=== PATIENT | female | born 2000 | race Two or more races ===

== ENCOUNTER 2024-10-04 15:00 | Emergency (ER) | payer OTHER, SELFPAY ==
--- NOTE | 2024-10-04 15:26 | ED_ITS ---
HPI - General Adult General Chief complaint: Neuro Symptoms/Deficit Stated complaint: multiple symptoms Time Seen by Provider: 10/04/24 18:03 Related Data Allergies Allergy/AdvReac Type Severity Reaction Status Date / Time No Known Allergies Allergy Verified 10/04/24 15:33 [facility] Social History Social History Smoked in Last 30 Days: No Use of substances other than those prescribed or required for medical reasons: No Advance Directives: No Advance Directives Information Provided: No Patient : No Physical Exam ED Vital Signs: Vital Signs - 24 hr 10/04/24 15:27 10/04/24 19:07 Temperature 98.3 F 8.1 F L Pulse Rate 90 85 Respiratory Rate 16 16 Blood Pressure 120/72 119/75 Pulse Oximetry 99 99 Oxygen Delivery Method Room Air Room Air BMI result Body Mass Index 44.0 Course Course Course Narrative: This is a Rapid Medical Exam performed in triage by Romi Brenner PA-C. Full HPI, ROS and PE to be performed by primary ED provider. 24 y/o F PMHx presenting to the ED c/o confusion, shakiness, nausea, weakness, poor appetite. Reports psych started her on trileptal for bipolar few months ago following a manic episode and couple weeks ago started getting side effects and stopped taking abruptly. Reports symptoms have worsened since stopping the med. Denies vomiting, diarrhea. Denies SI, thoughts of harming others, drug, alc use. PE: walking with steady gait, speaking in full sentences Plan: UA, labs Medical Decision Making Lab Data 10/04/24 15:43 10/04/24 15:43 Labs: Lab Results 10/04/24 Range/Units 15:43 WBC 8.9 (4.8-10.8) X10*3/uL RBC 4.06 L (4.20-5.50) X10*6/uL Hgb 10.5 L (12.0-16.0) g/dl Hct 32.0 L (37.0-47.0) % MCV 78.8 L (80.0-98.0) fL MCH 25.9 L (27.0-33.0) pg MCHC 32.8 (31.0-35.0) g/dl RDW 13.9 (11.0-16.0) % Plt Count 235 (160-400) X10*3/uL MPV 10.9 (9.4-12.3) fL Immature Gran % (Auto) 0.6 H (0.0-0.4) % Neut % (Auto) 70.3 (45-73) % Lymph % (Auto) 23.1 (20-40) % Wallace % (Auto) 4.6 (2-11) % Eos % (Auto) 1.2 (0-4) % Baso % (Auto) 0.2 (0-2) % Lymph # (Auto) 2.1 (1.2-4.9) X10*3/uL Wallace # (Auto) 0.4 (0.1-1.2) X10*3/uL Eos # (Auto) 0.1 (0.0-0.4) X10*3/uL Baso # (Auto) 0.0 (0.0-0.2) X10*3/uL Abs Immat Gran (auto) 0.05 H (0.00-0.03) X10*3/uL Absolute Neuts (auto) 6.3 (2.0-8.3) x10*3/uL Absolute Nucleated RBC 0.000 (0.0-0.012) X10*3/uL Nucleated RBC % (auto) 0.0 (0.0-0.2) /100WBC Sodium 139 (135-145) mmol/L Potassium 4.1 (3.3-5.1) mmol/L Chloride 108 (96-108) mmol/L Carbon Dioxide 26 (22-29) mmol/L Anion Gap 9 L (12-20) BUN 10 (9-16) mg/dL Creatinine 0.72 (0.5-1.4) mg/dL Estim Creat Clear Calc 153.6 Estimated GFR > 60 Random Glucose 86 (60-115) mg/dL Calcium 9.4 (8.4-10.2) mg/dL Magnesium 2.1 (1.6-2.6) mg/dL Total Bilirubin 0.2 (0.0-1.0) mg/dL Direct Bilirubin < 0.2 (0.0-0.5) mg/dL AST 31 (5-31) U/L ALT 38 H (0-31) U/L Alkaline Phosphatase 72 (39-117) U/L Total Protein 7.2 (6.5-8.0) g/dL Albumin 4.0 (3.5-5.0) g/dL Urine Color Yellow Urine Appearance Clear Urine pH 6.5 (5.0-9.0) Ur Specific [place] 1.010 (1.005-1.025) Urine Protein Negative (Neg-Trace) mg/dL Urine Glucose (UA) Negative (Negative) mg/dL Urine Ketones Negative (Negative) mg/dL Urine Blood Large (3+) H (Negative) Urine Nitrite Negative (Negative) Ur Leukocyte Esterase Small (1+) H (Negative) Urine RBC 0-2 (0-2) /HPF Urine WBC 0-5 (0-5) /HPF Ur Squamous Epith Cells 0-2 (0-2) /HPF Urine Bacteria None Seen (None Seen) Hyaline Casts 0-2 (0-2) /LPF Urine Test NEGATIVE (NEGATIVE) Urine Opiates Screen Not Detected (Not Detect) Ur Buprenorphine Scrn Not Detected (Not Detect) ng/mL Ur Oxycodone Screen Not Detected (Not Detect) ng/mL Urine Methadone Screen Not Detected (Not Detect) ng/mL Urine Fentanyl Screen Not Detected (Not Detect) Ur Barbiturates Screen Not Detected (Not Detect) Ur Phencyclidine Scrn Not Detected (Not Detect) Ur Amphetamines Screen Not Detected (Not Detect) U Benzodiazepines Scrn Not Detected (Not Detect) Urine Cocaine Screen Not Detected (Not Detect) U Marijuana (THC) Screen Not Detected (Not Detect) Discharge Plan Discharge Clinical Impression: Weakness Patient Disposition: Home, Self-Care Instructions: Weakness (ED) Referrals: Physician,Unknown J [Physician] - ( Please follow-up with your therapist on an outpatient basis in the next few days.) Print Language: Faroese
[2024-10-04 15:27] VITALS: BP 120/72; PULSE 90; RESP 16; TEMP 36.8; O2SAT 99; BMI 44.0
[2024-10-04 15:50] LABS: MANUAL DIFF FLAG NO
[2024-10-04 15:52] LABS: Appearance Urine Clear; Basophils Percent Auto 0.2 % (0-2); Color Urine Yellow; Eosinophils Absolute Auto 0.1 X10*3/uL (0.0-0.4); Eosinophils Percent Auto 1.2 % (0-4); Glucose Urine UA Negative (Negative); Hemoglobin 10.5 g/dl (12.0-16.0); Imm Gran Abs Auto 0.05 X10*3/uL (0.00-0.03); Imm Gran Pct Auto 0.6 % (0.0-0.4); Leukocyte Esterase Urine Small (1+) (Negative); Lymphocytes Absolute Auto 2.1 X10*3/uL (1.2-4.9); Lymphocytes Percent Auto 23.1 % (20-40); Mean Corpuscular HGB Conc 32.8 g/dl (31.0-35.0); Mean Corpuscular Hemoglobin 25.9 pg (27.0-33.0); Mean Corpuscular Volume 78.8 fL (80.0-98.0); Mean Platelet Volume 10.9 fL (9.4-12.3); Monocytes Absolute Auto 0.4 X10*3/uL (0.1-1.2); Monocytes Percent Auto 4.6 % (2-11); Neutrophils Absolute Auto 6.3 x10*3/uL (2.0-8.3); Neutrophils Percent Auto 70.3 % (45-73); Nitrite Urine Negative (Negative); PH 6.5 (5.0-9.0); Platelet Count 235 X10*3/uL (160-400); Red Blood Count 4.06 X10*6/uL (4.20-5.50); Red Cell Distribution Width 13.9 % (11.0-16.0); UMIC TRIGGER UACC YES; Urine Blood Large (3+) (Negative); Urine Ketones Negative (Negative); Urine Protein Negative (Neg-Trace); White Blood Count 8.9 X10*3/uL (4.8-10.8)
[2024-10-04 15:55] LABS: UPreg QC Valid YES; Urine Pregnancy NEGATIVE (NEGATIVE)
[2024-10-04 16:04] LABS: Bacteria Urine None Seen (None Seen); Hyaline Casts Urine 0-2 /LPF (0-2); RBC Urine 0-2 /HPF (0-2); Squamous Epithelial Cell Urine 0-2 /HPF (0-2); UACC Culture Trigger YES; WBC Urine 0-5 /HPF (0-5)
[2024-10-04 16:07] LABS: Amphetamine Screen Urine Not Detected (Not Detect); Barbiturates, Urine Not Detected (Not Detect); Benzodiazepines Screen Urine Not Detected (Not Detect); Buprenorphine Scr Not Detected (Not Detect); Cannabinoid Screen Urine Not Detected (Not Detect); Cocaine Screen Urine Not Detected (Not Detect); Fentanyl, urine Not Detected (Not Detect); Methadone Screen, Urine Not Detected (Not Detect); Opiate Screen Urine Not Detected (Not Detect); Oxycodone Screen Urine Not Detected (Not Detect); Phencyclidine Screen Urine Not Detected (Not Detect)
[2024-10-04 16:21] LABS: Alanine Aminotransferase 38 U/L (0-31); Alkaline Phosphatase 72 U/L (39-117); Anion Gap 9 (12-20); Aspartate Amino Transferase 31 U/L (5-31); Bilirubin Direct < 0.2 mg/dL (0.0-0.5); Bilirubin Total 0.2 mg/dL (0.0-1.0); Blood Urea Nitrogen 10 mg/dL (9-16); Calcium 9.4 mg/dL (8.4-10.2); Carbon Dioxide 26 mmol/L (22-29); Chloride 108 mmol/L (96-108); Creatinine Clr Calc Pharmacy 153.6; Estimated Glomerular Filt Rate > 60; Glucose Random 86 mg/dL (60-115); Magnesium 2.1 mg/dL (1.6-2.6); Potassium 4.1 mmol/L (3.3-5.1); Sodium 139 mmol/L (135-145); Total Protein 7.2 g/dL (6.5-8.0)
--- OUTSIDE RECORDS SUMMARY | 2024-10-04 18:16 | XMS_ITS | Continuity of Care Document ---
Author Organization [facility] Address [address] [place] [address] Phone Care Team Providers Care Behavioral Therapy Coordinator Name Role Phone [facility], [facility] Unavailable Unavail able Procedures Procedure Date Behavioral health outreach - Flat Rate 1 Unit Behavioral health outreach - Flat Rate 1 Unit Behavioral health outreach - Flat Rate 1 Unit Advance Directives Directive Yes / No Effective Date File Name No Information Encounters Encounter Description Practice Location Reason(s) For Visit Diagnoses Date Provider Providers Copied on Encounter [facility], [address] [place], [address], tel:[phone] [facility] [address] [place] [address] Outpatient No Information [address]. [address] [place], [place], [id number], [place]. tel:[phone] [facility], [address] [place], [address], tel:[phone] [facility] Adjustment disorder with mixed anxiety and depressed mood Sep-0 5 Aubrey Escobar. [address], [place], [place], [id number], [place]. tel:[phone] [facility], [address] [place], [address], [place] tel:[phone] [facility] Adjustment disorder with mixed anxiety and depressed mood Aug- 5 Aubrey Escobar. [address], [place], [place], [id number], [place]. tel:[phone] [facility], [address] [place], [address], [place] tel:[phone] [facility] Out[facility] Adjustment disorder with mixed anxiety and depressed mood Mar-2 1- 5 Hyler Luz. [address], [id number], [place]. tel:[phone] [facility], [address] [place], [address], [place] tel:[phone] [facility] Adjustment disorder with mixed anxiety and depressed mood Mar-1 4- 5 Hyler Luz. [address] [place], [id number], [place]. tel:[phone] [facility], [address] [place], [address], [place] tel:[phone] [facility] Adjustment disorder with mixed anxiety and depressed mood Mar-0 7- 5 Hyler Luz. [address] [place], [id number], [place]. tel:[phone] [facility], [address] [place], [address], [place] tel:[phone] [facility] [facility] Adjustment disorder with mixed anxiety and depressed mood Mar-0 - 5 Hyler Luz. [address] [place], [id number], [place]. tel:[phone] [facility], [address] [place], [address], [place] tel:[phone] [facility] Adjustment disorder with mixed anxiety and depressed mood Feb-2 8- 5 Hyler Luz. [address] [place], [id number], [place]. tel:[phone] [facility], [address] [place], [address], [place] tel:[phone] [facility] Out[facility] Adjustment disorder with mixed anxiety and depressed mood Feb-2 6- 5 Hyler Luz. [address] [place], [place], [id number], [place]. tel:[phone] [facility], [address] [place], [address], [place] tel:[phone] [facility] Outpatient Adjustment disorder with mixed anxiety and depressed mood Aubrey Luz. [address] [place], [place], [id number], [place]. tel:[phone] Family History Family Member Type Diagnosis Age At Onset No Information Payers Payer name Insurance type Covered green party ID Authoriza tion(s) Pending - [id number] Enrollment CI Smi NEED ASSESS MENT Social History Type Description Quantity Date Captured Comments Sex Female Smoking Status No Information Chief Complaint And Reason For Visit No Information Reason For Referral Reason For Referral No Information Plan Of Treatment Date Type Action Status Goal Td vaccine. Due on due Goal Unhealthy drug use screening . Due on due Goal Tdap. Due on due Goal HPV (1st). Due on due Goal Depression screening. Due on due Goal Influenza vaccine. Due on due Goal Hepatitis C screening. Due o n due Goal PAP. Due on due Goal Hepatitis C screening. Due o n due Goal Td vaccine. Due on due Goal Unhealthy drug use screening . Due on due Goal Tdap. Due on due Goal PAP. Due on due Goal HPV (1st). Due on due Goal Influenza vaccine. Due on due Goal Depression screening. Due on due Goal Td vaccine. Due on due Goal HPV (1st). Due on due Goal Influenza vaccine. Due on due Goal Unhealthy drug use screening . Due on due Goal Tdap. Due on due Goal Depression screening. Due on due Goal PAP. Due on due Goal Hepatitis C screening. Due o n due Goal Influenza vaccine. Due on due Goal Depression screening. Due on due Goal HPV (1st). Due on due Goal Tdap. Due on due Goal Unhealthy drug use screening . Due on due Goal PAP. Due on due Goal Td vaccine. Due on due Goal Hepatitis C screening. Due o n due Goal PAP. Due on due Goal HPV (1st). Due on due Goal Depression screening. Due on due Goal Tdap. Due on due Goal Td vaccine. Due on due Goal Unhealthy drug use screening . Due on due Goal Hepatitis C screening. Due o n due Goal Influenza vaccine. Due on due Goal Tdap. Due on due Goal Unhealthy drug use screening . Due on due Goal PAP. Due on due Goal HPV (1st). Due on due Goal Influenza vaccine. Due on due Goal Depression screening. Due on due Goal Hepatitis C screening. Due o n due Goal Td vaccine. Due on due Goal HPV (1st). Due on due Goal Tdap. Due on due Goal Td vaccine. Due on due Goal PAP. Due on due Goal Influenza vaccine. Due on due Goal Unhealthy drug use screening . Due on due Goal Hepatitis C screening. Due o n due Goal Depression screening. Due on due Goal HPV (1st). Due on due Goal Tdap. Due on due Goal PAP. Due on due Goal Td vaccine. Due on due Goal Unhealthy drug use screening . Due on due Goal Influenza vaccine. Due on due Goal Depression screening. Due on due Goal Hepatitis C screening. Due o n due Goal Unhealthy drug use screening . Due on due Goal HPV (1st). Due on due Goal Influenza vaccine. Due on due Goal Hepatitis C screening. Due o n due Goal Tdap. Due on due Goal PAP. Due on due Goal Td vaccine. Due on due Goal Depression screening. Due on due Goal PAP. Due on due Goal Depression screening. Due on due Goal Influenza vaccine. Due on due Goal Td vaccine. Due on due Goal HPV (1st). Due on due Goal Unhealthy drug use screening . Due on due Goal Tdap. Due on due Goal Hepatitis C screening. Due o n due History Of Present Illness Encounter Date Complaint History Of Prese nt Illness No Information Functional Status Date Functional Assessmen t No Information Instructions Date Instruction Additional Infor mation No Information Assessments Type Assessment Date No Information Patient Care Teams Name Effective Dates (start - stop) Status Members No Information
--- OUTSIDE RECORDS SUMMARY | 2024-10-04 18:16 | XMS_ITS | Encounter Summary ---
Author Organization [employer] Address [address] [place] [address] [address] [place] [address] Care Team Providers Care Computer Forensics Investigator Name Role Phone Susy Hernandez CONSERVATION WORKER Primary Care Provider [phone] Reason for Visit * Reason Onset Date Comments status on her glasses 12/12/2023 Encounter Details Date Type Department Care Team ([facility] st Contact Info) Description 12/12/2023 [facility]phone [facility] [address] [place] [address] Susy Hernandez NP [address] [place] [address] status on her glasses Social History Tobacco Use Types Packs/Day Years Used Date Smoking Tobacco: Never Smokeless Tobacco: Never Alcohol Use Standard Drinks/Week Comments Never 0 (1 standard drink = 0.6 oz pur e alcohol) Alcohol Answer Date Recorded How often do you have a drink containing alcohol ? 0 10/31/2023 How many drinks containing a lcohol do you have on a typical day when you are drinking? 0 10/31/2023 How often do you have six or more drinks on one occasion? 0 10/31/2023 Housing Stability Answer Date Recorded What is your housing situation today? I have emily godwin 10/31/[address] you li ve. Do you have problems with any of the following? None of the above 10/31/2023 Food Insecurity Answer Date Recorded Within the past 12 months, y ou worried that your food would run out before you got money to buy more: Never True 10/31/2023 Within the past 12 months,th e food you bought just didn't last and you didn't have enough money to get more: Never True 11/2023 Transportation Answer Date Recorded In the past 12 months, has l ack of transportation kept you from medical appts, meetings, work or from getting things needed for daily living? No 10/31/2023 Utilities Answer Date Recorded In the past 12 months, has t he electric, gas, oil or water company threatened to shut off services in your home? No 10/31/2023 Depression Answer Date Recorded Patient Health Questionnaire-2 Score 0 10/31/2023 Comments Unknown Sex and Gender Information Value Date Recorded Sex Assigned at Female 04/19/2023 9:24 AM EDT Legal Sex Female 9:23 AM EDT Gender Identity Female 04/19/2023 9:24 AM EDT Sexual Orientation Lesbian 07/18/2024 7: 45 PM EST documented as of this encounter Miscellaneous Notes * Telephone Encounter - Starr Arguello - 12/15/2023 9:37 AM EDT Texted 12/12 * Telephone Encounter - Gracie Ramsey - 12/12/2023 3:27 PM EDT Pt would like to know if her glasses are ready. documented in this encounter Plan of Treatment Not on file documented as of this encounter Visit Diagnoses Not on filedocumented in this encounter Care Teams Computer Forensics Investigator Relationship Specialty Start Date End Date Susy Hernandez NP [address] [place] [address] PCP - General Family Medicine 10/21/23 documented as of this encounter
--- OUTSIDE RECORDS SUMMARY | 2024-10-04 18:16 | XMS_ITS | Encounter Summary ---
Author Organization [employer] Address [address] [place] [address] [address] [place] [address] Care Team Providers Care Wire Harness Design Engineer Name Role Phone Susy Hernandez NP Primary Care Provider [phone] Reason for Visit * Reason Onset Date Comments Appointment Request 10/21/2023 Encounter Details Date Type Department Care Team (Late st Contact Info) Description 10/21/2023 Telephone Family Medicine [address] [place] [address] Provider, Not In System Appointment Request Social History Tobacco Use Types Packs/Day Years Used Date Smoking Tobacco: Never Assessed Comments Unknown Sex and Gender Information Value Date Recorded Sex Assigned at Female 04/19/2023 9:24 AM EDT Legal Sex Female 9:23 AM EDT Gender Identity Female 04/19/2023 9:24 AM EDT Sexual Orientation Lesbian 07/18/2024 7: 45 PM EST documented as of this encounter Miscellaneous Notes * Telephone Encounter - Pari aMrrero - 10/24/2023 10:38 AM EDT Still admitted * Telephone Encounter - Pari Marrero - 10/21/2023 10:41 AM EDT Booked 10/31/23 * Telephone Encounter - Janelsebastian Tannerher - 10/21/2023 9:43 AM EDT Non est disch f/u [facility] 429-10/24 Psych inpt care Maya [phone] Part of the [facility] Team documented in this encounter Plan of Treatment Not on file documented as of this encounter Visit Diagnoses Not on filedocumented in this encounter Care Teams Wire Harness Design Engineer Relationship Specialty Start Date End Date Susy Hernandez NP [address] [place] [address] PCP - General Family Medicine 10/21/23 documented as of this encounter
--- OUTSIDE RECORDS SUMMARY | 2024-10-04 18:16 | XMS_ITS | Continuity of Care Document ---
Author Organization [facility] Address [address] [place] [address] Phone Care Team Providers Care Starting Gate Driver Name Role Phone Shanae Richardson Unavailable Unavailable Allergies, Adverse Reactions, Alerts Substance Reaction Status Criticality banana Sore throat symptomTongue swelling Active No Information Medications Medication Instructions Dosage Effective Dates (start - stop) Status Comments PROPRANOLOL 10 MG TABLET TAKE 1 TABLET BY MOUTH TWICE A DAY 10 MG - Active Celexa 10 mg tablet take 1 tablet by ora l route every day 10 MG - Active lorazepam 0.5 mg tablet take 1 tablet by oral route up to once a day only for EXTREME ANXIETY - Active gabapentin 300 mg capsule take 1 capsule by oral route 2 times every day 300 MG - Active hydroxyzine HCl 25 mg tablet take 1-2 tablet by oral route 3 times every day as needed - Active ibuprofen 800 mg tablet take 1 tablet by oral route 2 times every day as needed for pain - Active Procedures Procedure Date Telehealth Audio Visit OFFICE/OUTPATIENT VISIT, EST CMVC (less than 8 minutes) CMVC (less than 8 minutes) CMVC (less than 8 minutes) CMVC (less than 8 minutes) CMVC (less than 8 minutes) Case Management 15 Minutes Telehealth Audio Visit OFFICE/OUTPATIENT VISIT, EST Telehealth Audio Visit OFFICE/OUTPATIENT VISIT, EST PSYTX PT&/FAMILY 45 MINUTES Telehealth Audio Visit OFFICE/OUTPATIENT VISIT, EST Case Management 15 Minutes PSYTX PT&/FAMILY 30 MINUTES Case Management 15 Minutes Case Management 15 Minutes Case Management 60 Minutes Case Management 60 Minutes Telehealth Audio Visit OFFICE/OUTPATIENT VISIT, EST Telehealth Audio Visit OFFICE/OUTPATIENT VISIT, EST Charge for additional DX capture only De Case Management 15 Minutes Charge for additional DX capture only De Telehealth Audio Visit OFFICE/OUTPATIENT VISIT, EST Charge for additional DX capture only De [facility] INDIV Telehealth Audio Visit OFFICE/OUTPATIENT VISIT, EST Charge for additional DX capture only De Telehealth Audio Visit OFFICE/OUTPATIENT VISIT, EST Charge for additional DX capture only No PSYTX PT&/FAMILY 45 MINUTES Charge for additional DX capture only No Telehealth Audio Visit OFFICE/OUTPATIENT VISIT, EST Charge for additional DX capture only Au Telehealth Audio Visit OFFICE/OUTPATIENT VISIT, EST Charge for additional DX capture only Ju Telehealth Audio Visit OFFICE/OUTPATIENT VISIT, EST Charge for additional DX capture only Ju Telehealth Audio Visit OFFICE/OUTPATIENT VISIT, EST UNLISTED E&M SERVICE PSYTX PT&/FAMILY 60 MINUTES Telehealth Audio Visit OFFICE/OUTPATIENT VISIT, EST PSYTX PT&/FAMILY 60 MINUTES OFFICE/OUTPATIENT VISIT, EST PSYCH DIAGNOSTIC EVALUATION OFFICE/OUTPATIENT VISIT, NEW Advance Directives Directive Yes / No Effective Date File Name No Information Encounters Encounter Description Practice Location Reason(s) For Visit Diagnoses Date Provider Providers Copied on Encounter [facility], [address], [place], [place], [address] , [place] tel:[phone] [place] No Information 4 Freddie Shanae. [address], [place], [address], [place]. tel:[phone] [facility], [address], [place], [place], [address] , [place] tel:[phone] [place] Unspecified mood [affective] disorderGAD (generalized anxiety disorder)PTSD (post-traumati c stress disorder)Panic attacksFamily discordAnxiety and depression 1 Jimmy Stallings. [address] [place], [place], [address], [place]. tel:[phone] [facility], [address], [place], [place], [address] , [place] [phone] [place] No Information 1 SHANE NABIL. [address], [place], [address], [place]. tel:[phone] OFFICE/OUTPA TIENT VISIT, EST [facility], [address], [place], [place], [address] , [place] [phone] [place] Medication Management (chief complaint)de pression (chief complaint) Unspecified mood [affective] disorderGAD (generalized anxiety disorder)PTSD (post-traumati c stress disorder)Panic attacksFamily discordAnxiety and depression Mar-2 1 ACOSTA FERRER. [address], [place], [address], [place]. tel:[phone] Referring Provider: NABIL SHANE, [address], [place], [address]. tel:[phone] [facility], [address], [place], [place], [address] , [place] tel:[phone] [place] [facility] Unspecified mood [affective] disorderGAD (generalized anxiety disorder)PTSD (post-traumati c stress disorder)Panic attacksFamily discordAnxiety and depression Mar- 1 ACOSTA FERRER. [address], [address], [place], [address], [place]. tel:[phone] Referring Provider: NABIL SHANE, [address], [place], [address]. tel:[phone] [facility], [address], [place], [address] , [place] tel:[phone] [place] [facility] Unspecified mood [affective] disorderGAD (generalized anxiety disorder)PTSD (post-traumati c stress disorder)Panic attacksFamily discordAnxiety and depression Aug- 1 Rashmi Newsome. [address], [address], [place], [place], [address], [place]. tel:[phone] Referring Provider: Jerod Caraballo, [address], [place], [address]. tel:[phone] [facility], [address], [place], [place], [address] , [place] tel:[phone] [place] [facility] Unspecified mood [affective] disorderGAD (generalized anxiety disorder)PTSD (post-traumati c stress disorder)Panic attacksFamily discordAnxiety and depression Aug- 6-202 1 Rashmi Newsome. [address], [address], [place], [place], [address], [place]. tel:[phone] [facility], [address], [place], [place], [address] , [place] tel:[phone] [place] [facility] Unspecified mood [affective] disorderGAD (generalized anxiety disorder)PTSD (post-traumati c stress disorder)Panic attacksFamily discordAnxiety and depression Aug- 5-202 1 Rashmi Newsome. [address], [address], [place], [place], [address], [place]. tel:[phone] Referring Provider: Jerod Caraballo, [address], [place], [address]. tel:[phone] [facility], [address], [place], [place], [address] , [place] tel:[phone] [place] [facility] Unspecified mood [affective] disorderGAD (generalized anxiety disorder)PTSD (post-traumati c stress disorder)Panic attacksFamily discordAnxiety and depression Aug- 0-202 1 Rashmi Newsome. [address], [address], [place], [place], [address], [place]. tel:[phone] [facility], [address], [place], [address] , [place] tel:[phone] [place] Unspecified mood [affective] disorderGAD (generalized anxiety disorder)PTSD (post-traumati c stress disorder)Panic attacksFamily discordAnxiety and depression Aug-0 8-202 1 Rashmi Newsome. [address], [address], [place], [place], [address], [place]. tel:[phone] Referring Provider: Jerod Caraballo, [address], [place], [address]. tel:[phone] [facility], [address], [place], [place], [address] , [place] tel:[phone] [place] Unspecified mood [affective] disorderGAD (generalized anxiety disorder)PTSD (post-traumati c stress disorder)Panic attacksFamily discordAnxiety and depression Aug-0 1 Rashmi Jerod. [address], [address], [place], [place], [address], [place]. tel:[phone] Referring Provider: Jerod Caraballo, [address], [place], [address]. tel:[phone] OFFICE/OUTPA TIENT VISIT, EST [facility], [address], [place], [place], [address] , [place] tel:[phone] [place] Medication Management (chief complaint)Mo od disorder (chief complaint)An xiety (chief complaint) Unspecified mood [affective] disorderGAD (generalized anxiety disorder)PTSD (post-traumati c stress disorder)Panic attacksFamily discordAnxiety and depression Jul- 1 ACOSTA JETT [address], [place], [address], [place]. tel:[phone] Referring Provider: Will RE[address], [place], [address]. tel:[phone] [facility], [address], [place], [place], [address] , [place] tel:[phone] [place] Unspecified mood [affective] disorderGAD (generalized anxiety disorder)PTSD (post-traumati c stress disorder)Panic attacksFamily discordAnxiety and depression 1 ACOSTA JETT [address], [place], [address], [place]. tel:[phone] Referring Provider: NABIL SHANE [address], [place], [address]. tel:[phone] OFFICE/OUTPA TIENT VISIT, EST [facility], [address], [place], [place], [address] , [place] [phone] [place] Medication Management (chief complaint)An xiety (chief complaint)PT SD (chief complaint)Mo od disorder (chief complaint) Unspecified mood [affective] disorderGAD (generalized anxiety disorder)PTSD (post-traumati c stress disorder)Panic attacksFamily discordAnxiety and depression 0- 1 ACOSTA FERRER. [address], [place], [address], [place]. tel:[phone] Referring Provider: NABIL SHANE, [address], [place], [address]. tel:[phone] [facility], [address], [place], [address] , [place] [phone] [place] Unspecified mood [affective] disorderGAD (generalized anxiety disorder)PTSD (post-traumati c stress disorder)Panic attacksFamily discordAnxiety and depression 0 1 Rashmi Newsome. [address], [address], [place], [place], [address], [place]. tel:[phone] PSYTX PT&/FAMILY 45 MINUTES [facility], [address], [place], [place], [address] , [place] [phone] [place] Unspecified mood [affective] disorderGAD (generalized anxiety disorder)PTSD (post-traumati c stress disorder)Panic attacksFamily discordAnxiety and depression 0 1 Rashmi Newsome. [address], [place], [place], [address], [place]. tel:[phone] Referring Provider: Jerod Caraballo, [address], [place], [address]. tel:[phone] [facility], [address], [place], [address] , [place] tel:[phone] [place] Unspecified mood [affective] disorderGAD (generalized anxiety disorder)PTSD (post-traumati c stress disorder)Panic attacksFamily discordAnxiety and depression Feb-0 1 Gaurav Gomez. [address], [address], [place], [place], [address], [place]. tel:[phone] OFFICE/OUTPA TIENT VISIT, EST [facility], [address], [place], [address] , [place] tel:[phone] [place] Unspecified mood [affective] disorderGAD (generalized anxiety disorder)PTSD (post-traumati c stress disorder)Panic attacksFamily discordAnxiety and depression Feb-0 1 REGINA COTTO. [address] [place] [address], [id number], [place]. tel:[phone] Referring Provider: YADIEL TAPIA, [address] [place] [address], [address]. tel:[phone] [facility], [address], [place], [address] , [place] tel:[phone] [place] [facility] Unspecified mood [affective] disorderGAD (generalized anxiety disorder)PTSD (post-traumati c stress disorder)Panic attacksFamily discordAnxiety and depression Feb-0 1 Rashmi Newsome. [address], [place], [place], [address], [place]. tel:[phone] Referring Provider: Jerod Caraballo, [address], [place], [address]. tel:[phone] [facility], [address], [place], [place], [address] , [place] tel:[phone] [place] Unspecified mood [affective] disorderGAD (generalized anxiety disorder)PTSD (post-traumati c stress disorder)Panic attacksFamily discordAnxiety and depression 1 Rashmi Newsome. [address], [place], [place], [address], [place]. [phone] PSYTX PT&/FAMILY 30 MINUTES [facility], [address], [place], [place], [address] , [place] tel: [phone] [place] Unspecified mood [affective] disorderGAD (generalized anxiety disorder)PTSD (post-traumati c stress disorder)Panic attacksFamily discordAnxiety and depression 1 Rashmi Newsome. [address], [address], [place], [place], [address], [place]. tel:[phone] Referring Provider: Will Conroy[address], [place], [address]. [phone] [facility], [address], [place], [address] , [place] tel: [phone] [place] [facility] Unspecified mood [affective] disorderGAD (generalized anxiety disorder)PTSD (post-traumati c stress disorder)Panic attacksFamily discordAnxiety and depression 1 Rashmi Kim [address], [address], [place], [place], [address], [place]. [phone] Referring Provider: Jerod Caraballo, [address], [place], [address]. tel:[phone] [facility], [address], [place], [address] , [place] tel:[phone] [place] [facility] Unspecified mood [affective] disorderGAD (generalized anxiety disorder)PTSD (post-traumati c stress disorder)Panic attacksFamily discordAnxiety and depression 1 Rashmi Newsome. [address], [address], [place], [place], [address], [place]. tel:[phone] Referring Provider: Jerod Caraballo, [address], [place], [address]. tel:[phone] [facility], [address], [place], [place], [address] , [place] tel:[phone] [place] FFS Unspecified mood [affective] disorderGAD (generalized anxiety disorder)PTSD (post-traumati c stress disorder)Panic attacksFamily discordAnxiety and depression 1 Rashmi Newsome. [address], [address], [place], [place], [address], [place]. tel:[phone] Referring Provider: Jerod Caraballo, [address], [place], [address]. tel:[phone] [facility], [address], [place], [place], [address] , [place] tel:[phone] [place] [facility] Unspecified mood [affective] disorderGAD (generalized anxiety disorder)PTSD (post-traumati c stress disorder)Panic attacksFamily discordAnxiety and depression 1 aRshmi Newsome. [address], [address], [place], [place], [address], [place]. tel:[phone] Referring Provider: Jerod Caraballo, [address], [place], [address]. tel:[phone] OFFICE/OUTPA TIENT VISIT, EST [facility], [address], [place], [address] , [place] tel:[phone] [place] Medication Management (chief complaint)An xiety (chief complaint)Mo od disorder (chief complaint)Se lf harm (chief complaint) Unspecified mood [affective] disorderGAD (generalized anxiety disorder)PTSD (post-traumati c stress disorder)Panic attacksFamily discordAnxiety and depression 0 1 ACOSTA FERRER. [address], [place], [address], [place]. tel:[phone] Referring Provider: NABIL SHANE, [address], [place], [address]. tel:[phone] OFFICE/OUTPA TIENT VISIT, EST [facility], [address], [place], [address] , [place] [phone] [place] Medication Management (chief complaint)an xiety (chief complaint) Unspecified mood [affective] disorderGAD (generalized anxiety disorder)PTSD (post-traumati c stress disorder)Panic attacksFamily discordAnxiety and depression 0 ACOSTA FERRER. [address], [place], [address], [place]. tel:[phone] Referring Provider: NABIL SHANE, [address], [place], [address]. tel:[phone] Charge for additional DX capture only [facility], [address], [place], [address] , [place] [phone] [place] [facility] Unspecified mood [affective] disorderGAD (generalized anxiety disorder)PTSD (post-traumati c stress disorder)Panic attacksFamily discordAnxiety and depression 0 Bonnie Woody. [address], [place], [place], [address], [place]. tel:[phone] Referring Provider: Annalise Nicole, [address], [place], [address]. tel:[phone] OFFICE/OUTPA TIENT VISIT, EST [facility], [address], [place], [place], [address] , [place] tel:[phone] [place] Unspecified mood [affective] disorderGAD (generalized anxiety disorder)PTSD (post-traumati c stress disorder)Panic attacksFamily discord 0 REGINA COTTO. [address], [place], [address], [place]. tel:[phone] Referring Provider: YADIEL TAPIA, [address] [place], [address]. tel:[phone] [facility], [address], [place], [place], [address] , [place] tel: [phone] [place] panic attacks (chief complaint) Nervousness 0 NATHAN KOCH. [address], [place], [address], [place]. tel:[phone] Referring Provider: ZEE EVANS, [address] [place], [address]. tel:[phone] OFFICE/OUTPA TIENT VISIT, EST [facility], [address], [place], [place], [address] , [place] tel: [phone] [place] Medication Management (chief complaint)mo od disorder (chief complaint)Sl eep disturbance (chief complaint) Unspecified mood [affective] disorderGAD (generalized anxiety disorder)PTSD (post-traumati c stress disorder)Panic attacksFamily discord 0 ACOSTA FERRER. [address], [place], [address], [place]. tel:[phone] Referring Provider: NABIL SHANE, [address], [place], [address]. tel:[phone] OFFICE/OUTPA TIENT VISIT, EST [facility], [address], [place], [place], [address] , [place] tel:[phone] [place] Medication Management (chief complaint)de pression (chief complaint) Unspecified mood [affective] disorderGAD (generalized anxiety disorder)PTSD (post-traumati c stress disorder)Panic attacksFamily discord 0 ACOSTA FERRER. [address], [place], [address], [place]. tel:[phone] Referring Provider: NABIL SHANE, [address], [place], [address]. tel:[phone] PSYTX PT&/FAMILY 45 MINUTES [facility], [address], [place], [place], [address] , [place] tel:[phone] [place] Unspecified mood [affective] disorderGAD (generalized anxiety disorder)PTSD (post-traumati c stress disorder)Panic attacksFamily discord - 0 Rashmi Newsome. [address], [place], [place], [address], [place]. tel:[phone] Referring Provider: Jerod Trinidadnaa, [address], [place], [address]. tel:[phone] OFFICE/OUTPA TIENT VISIT, EST [facility], [address], [place], [place], [address] , [place] tel:[phone] [place] Unspecified mood [affective] disorderGAD (generalized anxiety disorder)PTSD (post-traumati c stress disorder)Panic attacksFamily discord 0 REGINA COTTO. [facility], [place], [address], [place]. tel:[phone] Referring Provider: YADIEL TAPIA, [facility] [place], [address]. tel:[phone] OFFICE/OUTPA TIENT VISIT, EST [facility], [address], [place], [place], [address] , [place] tel:[phone] [place] Medication management follow-up (chief complaint) Severe episode of recurrent major depressive disorder, without psychotic featuresUnspec ified mood [affective] disorderGAD (generalized anxiety disorder)PTSD (post-traumati c stress disorder)Panic attacksDeperso nalization-lou ealization disorderFamily discord 0 CARLOS ESTRELLA. [address] [place] [address], [id number], . tel:[phone] Referring Provider: DELORES GONZALEZ, [address] [place] [address], [address]. tel:[phone] OFFICE/OUTPA TIENT VISIT, EST [facility], [address], [place], [place], [address] , [place] tel:[phone] [place] Mood Swings (chief complaint)Me dication management follow-up (chief complaint) Severe episode of recurrent major depressive disorder, without psychotic featuresUnspec ified mood [affective] disorderGAD (generalized anxiety disorder)PTSD (post-traumati c stress disorder)Panic attacksDeperso nalization-lou ealization disorderFamily discord 0 CARLOS ESTRELLA. [address] [place] [address], [id number], [place]. tel:[phone] Referring Provider: DELORES GONZALEZ, [address] [place] [address], [address]. tel:[phone] [facility], [address], [place], [place], [address] , [place] tel:[phone] [place] Severe episode of recurrent major depressive disorder, without psychotic featuresUnspec ified mood [affective] disorderGAD (generalized anxiety disorder)PTSD (post-traumati c stress disorder)Panic attacksDeperso nalization-lou ealization disorderFamily discord 0 Rashmi Newsome. [address], [place], [place], [address], [place]. tel:[phone] Referring Provider: Jerod Caraballo, [address], [place], [address]. tel:[phone] OFFICE/OUTPA TIENT VISIT, EST [facility], [address], [place], [place], [address] , [place] tel:[phone] [place] Follow-up for Medication Management (chief complaint)de pression (chief complaint) Severe episode of recurrent major depressive disorder, without psychotic featuresUnspec ified mood [affective] disorderGAD (generalized anxiety disorder)PTSD (post-traumati c stress disorder)Panic attacksDeperso nalization-lou ealization disorderFamily discord 0 CARLOS ESTRELLA. [address] [place] [address], [id number], [place]. tel:[phone] Referring Provider: DELORES GONZALEZ, [address] [place] [address], [address]. tel:[phone] PSYTX PT&/FAMILY 60 MINUTES [facility], [address], [place], [place], [address] , [place] tel:[phone] [place] Severe episode of recurrent major depressive disorder, without psychotic featuresUnspec ified mood [affective] disorderGAD (generalized anxiety disorder)PTSD (post-traumati c stress disorder)Panic attacksDeperso nalization-lou ealization disorderFamily discord 0 Rashmi Newsome. [address], [place], [place], [address], [place]. tel:[phone] Referring Provider: Jerod Caraballo, [address], [place], [address]. tel:[phone] OFFICE/OUTPA TIENT VISIT, EST [facility], [address], [place], [place], [address] , [place] tel:[phone] [place] Follow-up for medication management (chief complaint)de pression (chief complaint)In somnia (chief complaint) Severe episode of recurrent major depressive disorder, without psychotic featuresUnspec ified mood [affective] disorderGAD (generalized anxiety disorder)PTSD (post-traumati c stress disorder)Panic attacksDeperso nalization-lou ealization disorderFamily discord May-0 4-202 0 CARLOS ESTRELLA. [address] [place] [address], [id number], [place]. tel:[phone] Referring Provider: DELORES GONZALEZ, [address] [place] [address], [address]. tel:[phone] PSYTX PT&/FAMILY 60 MINUTES [facility], [address], [place], [place], [address] , [place] tel:[phone] [place] Severe episode of recurrent major depressive disorder, without psychotic featuresUnspec ified mood [affective] disorderGAD (generalized anxiety disorder)PTSD (post-traumati c stress disorder)Panic attacksDeperso nalization-lou ealization disorderFamily discord Apr-2 0-202 0 Rashmi Newsome. [address], [place], [place], [address], [place]. tel:[phone] Referring Provider: Jerod Caraballo, [address], [place], [address]. tel:[phone] OFFICE/OUTPA TIENT VISIT, EST [facility], [address], [place], [place], [address] , [place] tel:[phone] [place] anxiety (chief complaint)de pression (chief complaint) PTSD (post-traumati c stress disorder)Sever e episode of recurrent major depressive disorder, without psychotic featuresGAD (generalized anxiety disorder)Panic attacksDeperso nalization-lou ealization disorderFamily discordUnspeci fied mood [affective] disorder Apr-0 7 0 CARLOS ESTRELLA. [facility] [address], [place], [id number], [place]. tel:[phone] Referring Provider: DELORES GONZALEZ, [address] [place] [address], [address]. tel:[phone] PSYCH DIAGNOSTIC EVALUATION [facility], [address], [place], [place], [id number] , [place] tel:[phone] [place] PTSD (post-traumati c stress disorder)PARDEEP (generalized anxiety disorder)Panic attacksDeperso nalization-lou ealization disorderSevere episode of recurrent major depressive disorder, without psychotic featuresFamily discord 0 Rashmi Newsome. [address], [place], [place], [id number], [place]. tel:[phone] Referring Provider: Jerod Caraballo, [address], [place], [address]. tel:[phone] OFFICE/OUTPA TIENT VISIT, [facility], [address], [place], [place], [id number] , [place] tel:[phone] [place] Establish Pain (chief complaint)An xiety / Depression (chief complaint) Encounter to establish careScreening for hypothyroidism Screening for metabolic disorderScreen ing for cholesterol levelAnxiety and depressionMajo r depressive disorder, single episode, unspecifiedPTS D (post-traumati c stress disorder)Delib erate self-cuttingCh ronic left-sided low back pain with left-sided sciaticaOther chronic pain 0 Freddie Jolly. [address], [place], [id number], [place]. tel:[phone] Referring Provider: Shanae Frazier [address] [place], [address]. tel:[phone] Family History Family Member Type Diagnosis Age At Onset Problem (finding) Family history of manic -depressive state Problem (finding) Family history of malignant neoplasm of breast in first degree relative Father Problem (finding) PTSD and Personality di sorder Payers Payer name Insurance type Covered constitution party ID Authoriza ticassandra(s) SUDEEP Complete Care ([facility]) [facility] [id number] Social History Type Description Quantity Date Captured Comments Sex Female Smoking Status No Information Sexual Orientation Bisexual Gender Identity Female Chief Complaint And Reason For Visit No Information Reason For Referral Reason For Referral No Information Plan Of Treatment Date Type Action Status Goal Tobacco cessation counseling completed Goal Tobacco cessation counseling completed Goal Tobacco cessation counseling completed Patient Education Learning About Benefits From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 understanding and discussion was conducted in their preferred language. Related to Unspecified mood [affective] disorder The patient provided verbal informed consent for the use of telehealth visit. Pt was informed that all usual policies, procedures, and payments applied, and details of the visit would be documented in their medical record. Patient expressed understanding and discussion was conducted in their preferred language. - INCREASE zoloft to 150mg daily, continue gabapentin 300mg twice a day, and vistaril 25mg up to three times a day as needed for anxiety. - Continue propranolol 10mg twice a day. Be sure to drink plenty of fluids. - Continue mirtazapine 15mg 0.5-1tab at bedtime for sleep and anxiety. Try taking 1/2 tab to see if you are still able to sleep well but not so long as 12 hours. - Continue regular psychotherapy with Jerod. I will consult with her re: sanjay carver.- I will have case management reach out to you regarding possible IOP options as I think a more intensive therapy would be beneficial at this time. - Continue other medications as prescribed.- Keep your appointments with other healthcare providers.- For a psychiatric emergency (thoughts of or violence), call 911 or go to the nearest emergency department. You can also call the Crisis Line at . - For urgent psychiatric needs the following sources should be used (including after hours services): - [facility] located at [facility] [place] [address]., [address], [place] [address]; . - [facility] ([facility]); . - Suicide Prevention [facility]; - Return to Clinic in 2 weeks, sooner as needed. Related to Unspecified mood [affective] disorder The patient provided verbal informed consent for the use of telehealth visit. Pt was informed that all usual policies, procedures, and payments applied, and details of the visit would be documented in their medical record. Patient expressed understanding and discussion was conducted in their preferred language. - STOP lamictal, cymbalta and seroquel (stopped while inpatient). - Continue zoloft 100mg daily, gabapentin 300mg twice a day, and vistaril 25mg up to three times a day as needed for anxiety. - START propranolol 10mg twice a day. Be sure to drink plenty of fluids. - START mirtazapine 15mg 0.5-1tab at bedtime for sleep and anxiety.- Continue regular psychotherapy with Jerod. I will consult with her re: therapy dog.- I will have case management reach out to you regarding possible IOP options as I think a more intensive therapy would be beneficial at this time. - Continue other medications as prescribed.- Keep your appointments with other healthcare providers.- For a psychiatric emergency (thoughts of or violence), call 911 or go to the nearest emergency department. You can also call the Crisis Line at . - For urgent psychiatric needs the following sources should be used (including after hours services): - [facility] located at [address] [place] [address], [address], [place] [address]; . - [facility] ([facility]); . - Suicide Prevention [facility]; - Return to Clinic in 1 week. Related to Unspecified mood [affective] disorder [facility] discussed the MH model and the [facility] role. [facility] provided this pt with psychoeducation associated with the pt's situation. Pt was receptive. [facility] discussed ways that psychotherapy could help the pt, and the pt said she would schedule a psychotherapy appointment at [facility]. [facility] discussed several reasons the pt might have started having panic attacks, such as new stresses and her use of marijuana. Pt said she would call and schedule an appointment with her psychiatric nurse practitioner. Related to Nervousness -The plan at this [facility] is to provide her with Vistaril 25-50mg TID PRN for panic symptoms. Follow-up with provider in 3 weeks with Nabil. Continue Lamictal titration schedule and continue Cymbalta as prescribed.-The pt/family provided verbal consent for the use of medication. Pt/family acknowledged they understood the potential risk and benefits of medication use. Pt/family verbalized understanding of potential side effects.- Risk, benefits, and alternative treatments discussed in detail.- Instructed to pursue enjoyable activities and social relationships, Eat a healthy diet, and get daily low-level exercise. - For someone to talk to call the Warm Line @[phone]- For a psychiatric emergency (thoughts of or violence), call 911 or go to the nearest emergency department. You can also call the Crisis Line at . - For urgent psychiatric needs the following sources should be used (including after hours services):- [facility] located at [address], [place] [address]; .- [facility] ([facility]); .- Suicide Prevention [facility]; - The patient\family provided verbal informed consent for the use of telephonic visit. Patient\family was informed that all usual policies, procedures, and payments applied, and details of the visit would be documented in their medical record. Patient\family expressed understanding and discussion was conducted in their preferred language. Related to Unspecified mood [affective] disorder Work with psychother apy to learn new cognitive skills Related to Nervousness Discuss medication for anxiety R elated to Nervousness A teachback technResident Research e was utilized for patient education Related to Nervousness The patient provided verbal informed consent for the use of telehealth visit. Pt was informed that all usual policies, procedures, and payments applied, and details of the visit would be documented in their medical record. Patient expressed understanding and discussion was conducted in their preferred language.- Continue cymbalta 60mg daily.- Continue lamictal titration. Continue 2 25mg daily for two weeks, then increase to 100mg daily.- Check baseline labs including TSH.- Continue regular psychotherapy with Jerod.- Risk, benefits, and alternative treatments discussed in detail.- Instructed to pursue enjoyable activities and social relationships, Eat a healthy diet, and get daily low-level exercise. - For someone to talk to call the Warm Line @[phone]- For a psychiatric emergency (thoughts of or violence), call 911 or go to the nearest emergency department. You can also call the Crisis Line at . - For urgent psychiatric needs the following sources should be used (including after hours services):- [facility] located at [address], [place] [address]; .- [facility] ([facility]); .- Suicide Prevention [facility]; - Follow up in 3 weeks, sooner as needed. Related to Unspecified mood [affective] disorder The patient provided verbal informed consent for the use of telehealth visit. Pt was informed that all usual policies, procedures, and payments applied, and details of the visit would be documented in their medical record. Patient expressed understanding and discussion was conducted in their preferred language.- Taper off seroquel over next week. Take 100mg for 3 days, then 50mg for 3 days, then stop.- Decrease cymbalta to 60mg daily from 90mg. May taper off in the future.- Start lamictal titration. Take 25mg daily for 2 weeks, then increase to 2 25mg tabs daily for 2 weeks. NOtify office for any symptoms of rash or other SE.- Continue regular psychotherapy with Jerod.- Risk, benefits, and alternative treatments discussed in detail.- Instructed to pursue enjoyable activities and social relationships, Eat a healthy diet, and get daily low-level exercise. - For someone to talk to call the Warm Line @[phone]- For a psychiatric emergency (thoughts of or violence), call 911 or go to the nearest emergency department. You can also call the Crisis Line at . - For urgent psychiatric needs the following sources should be used (including after hours services):- [facility] located at [address], [place] [address]; .- [facility] ([facility]); .- Suicide Prevention Lif[facility]; - Follow up in 3 weeks, sooner as needed. Related to Unspecified mood [affective] disorder The patient provided verbal informed consent for the use of telephonic visit. Pt. was informed that all usual policies, procedures, and payments applied, and details of the visit would be documented in their medical record. Patient expressed understanding and discussion was conducted in their preferred language. Related to Unspecified mood [affective] disorder - The plan is to con tinue the Seroquel as prescribed but pt was instructed she can try reducing the dose by half for a few days to assess for improvement in lethargy. Continue the Cymbalta as prescribed. Follow-up with the new psychiatric provider in 4 weeks. -The pt/family provided verbal consent for the use of medication. Pt/family acknowledged they understood the potential risk and benefits of medication use. Pt/family verbalized understanding of potential side effects.- Risk, benefits, and alternative treatments discussed in detail.- Instructed to pursue enjoyable activities and social relationships, Eat a healthy diet, and get daily low-level exercise. - For someone to talk to call the Warm Line @[phone]- For a psychiatric emergency (thoughts of or violence), call [phone] or go to the nearest emergency department. You can also call the Crisis Line at . - For urgent psychiatric needs the following sources should be used (including after hours services):- [facility] located at [facility] [address], [address], [place] [address]; .- [facility] ([facility]); .- Suicide Prevention [facility]; - The patient\family provided verbal informed consent for the use of telephonic visit. Patient\family was informed that all usual policies, procedures, and payments applied, and details of the visit would be documented in their medical record. Patient\family expressed understanding and discussion was conducted in their preferred language. Related to Unspecified mood [affective] disorder -CONTINUE Seroquel 1 50 mg daily 30 minutes before sleep.-INCREASE Cymbalta (duloxetine) 90mg ((60mg + 30mg) at bedtimeContinue therapy with Jerod.Begin medication management. Continue other medications as prescribed.Keep your appointments with other healthcare providersFor a psychiatric emergency (thoughts of or violence), call 911 or go to the nearest emergency department. You can also call the Crisis Line at . For urgent psychiatric needs the following sources should be used (including after hours services): [facility] located at [address], [facility] [address]; [phone].[facility] located at [address], [place] [address]; .[facility] (throughout [facility]); . Suicide Prevention Lifeline; Return for follow-up in 4 weeks, sooner if needed. 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 Continue other medications as prescribed.Keep your appointments with other healthcare providersFor a psychiatric emergency (thoughts of or violence), call 911 or go to the nearest emergency department. You can also call the Crisis Line at . For urgent psychiatric needs the following sources should be used (including after hours services): [facility] located at [address], [facility] [address]; [phone].[facility] located at [address], [place] [address]; .[facility] (throughout [facility]); . Suicide Prevention Lif[facility]; Return for follow-up in 4 weeks, sooner if needed. Related to Severe episode of recurrent major depressive disorder, without psychotic features Take Lexapro (escita lopram 10mg ) 1/2 tablet by mouth for 7 days then stopSTART Cymbalta (duloxetine) 20mg twice daily.Continue therapy with Jerod.Begin medication management. Continue other medications as prescribed.Keep your appointments with other healthcare providersFor a psychiatric emergency (thoughts of or violence), call 911 or go to the nearest emergency department. You can also call the Crisis Line at . For urgent psychiatric needs the following sources should be used (including after hours services): [facility] located at [address], [facility] [address]; [phone].[facility] located at [address], [place] [address]; .[facility] (throughout [facility]); . Suicide Prevention Lifeline; Return for follow-up in 4 weeks, sooner if needed. Related to Severe episode of recurrent major depressive disorder, without psychotic features The patient provided verbal informed consent for the use of telephonic visit. Pt. was informed that all usual policies, procedures, and payments applied, and details of the visit would be documented in their medical record. Patient expressed understanding and discussion was conducted in their preferred language. Related to Severe episode of recurrent major depressive disorder, without psychotic features Take Lexapro (escita lopram 10mg ) 1/2 tablet by mouth for 7 days then stopSTART Seroquel (quetiapine) 50mg 1/2 tablet for 7 days then 1 tablet daily.Begin therapy.Begin medication management. Continue other medications as prescribed.Keep your appointments with other healthcare providersFor a psychiatric emergency (thoughts of or violence), call 911 or go to the nearest emergency department. You can also call the Crisis Line at . For urgent psychiatric needs the following sources should be used (including after hours services): [facility] located at [address], [place] [address]; [phone].[facility] located at [address], [place] [address]; .[facility] ([facility]out [facility]); . Suicide Prevention Lifeline; Return for follow-up in 4 weeks, sooner if needed. Related to Severe episode of recurrent major depressive disorder, without psychotic features Take Lexapro (escita lopram 10mg ) 1/2 tablet by mouth for 7 days then stopSTART Seroquel (quetiapine) 50mg 1/2 tablet for 7 days then 1 tablet daily.Begin therapy.Begin medication management. Continue other medications as prescribed.Keep your appointments with other healthcare providersFor a psychiatric emergency (thoughts of or violence), call 911 or go to the nearest emergency department. You can also call the Crisis Line at . For urgent psychiatric needs the following sources should be used (including after hours services): [facility] located at [address], [place] [address]; [phone].[facility] located at [address], [place] [address]; .[facility] (throughout [facility]); . Suicide Prevention Lifeline; Return for follow-up in 4 weeks, sooner if needed. Related to Severe episode of recurrent major depressive disorder, without psychotic features Begin therapy.Begin medication management. Teachback technique utilized for patient education.Continue other medications as prescribed.Referral to psychiatric provider and an appointment will be scheduled.Keep your appointments with other healthcare providersFor a psychiatric emergency (thoughts of or violence), call 911 or go to the nearest emergency department. You can also call the Crisis Line at . For urgent psychiatric needs the following sources should be used (including after hours services): [facility] located at [address], [place] [address]; [phone].[facility] located at [address], [place] [address]; .[facility] ([facility]out [facility]); . Suicide Prevention Lifeline; Related to PTSD (post-traumatic stress disorder) Your pain is due to sciatica nerve. I have sent a prescription to your pharmacy. Use ice to your back as needed to reduce swelling and inflammation. I recommend that you do the exercises to help with your symptoms. Return if not improving Related to Chronic left-sided low back pain with left-sided sciatica You have been given a slip to evaluate your labs If your are not fasting today, return to the lab to have your labs drawn after fasting past midnight We will contact you with results. If you do not receive the lab results in 2-3 weeks, please call the office. Related to Screening for hypothyroidism Keep your appointmen ts with [facility] on 10/01/19 and 10/02/19 Related to Major depressive disorder, single episode, unspecified Welcome to [facility]. We are happy to be your medical home.Request records from prior PCP - immunization record and last visit. You have been seen by a float provider. It is important for you to establish care with a primary care provider (PCP). Related to Encounter to establish care Your antidepressant mediation has been sent to your pharmacy. Take as directed. Full effects of this medication may take 3-8 weeks. I recommend that you eat three healthy meals a day with 2-3 healthy snacks Try to exercise daily for 20 minutes. Get plenty of sleep at night @ least 8 hrs. Drink plenty of water to keep hydrated. Recommend counseling. For someone to talk to, call the Warm Line [phone]. If you have thoughts of self harm or harming others, go to the ED, call 607, or call the Suicide prevention hotline 3-536-512-DWPP (1469). Follow up with your PCP in 4 weeks for possible medication adjustment Related to Anxiety and depression Assessments Type Assessment Date No Information Patient Care Teams Name Effective Dates (start - stop) Status Members No Information
--- OUTSIDE RECORDS SUMMARY | 2024-10-04 18:16 | XMS_ITS | Clinical Summary ---
Author Organization [employer] Address [address] [facility] [address] [place] [address] Care Team Providers Care Rn Cvor Name Role Phone Susy Hernandez NP Primary Care Provider [phone] Allergies Active Allergy Reactions Criticality Noted Date Comments Banana Unknown 10/16/2023 Kiwi Extract Unknown 10/16/2023 Medications buPROPion (Wellbutrin) 75 MG tablet Take 150 mg by mouth 2 times daily. 10/24/19 24 Active clonazePAM (KlonoPIN) 1 MG tablet Take 1 mg by mouth 2 times daily. 10/24/19 24 Active prazosin (Minipress) 2 MG capsule Take 2 mg by mouth at bedtime. 10/24/19 24 Active ferrous sulfate 325 (65 Fe) MG tabletIndications :Anemia, unspecified type Take 1 tablet (325 mg) by mouth with breakfast. 90 tablet 3 10/31/19 24 025 Active melatonin 5 MG tabletIndications :Poor sleep Take 1 tablet (5 mg) by mouth at bedtime. 90 tablet 3 12/02/19 24 025 Active ARIPiprazole (Abilify) 10 MG tablet Take 10 mg by mouth Once per day. 01/20/20 24 Active QUEtiapine (SEROquel) 50 MG tablet Take 50 mg by mouth at bedtime. 01/13/20 24 Active lurasidone (Latuda) 20 MG tablet Take 20 mg by mouth Once per day. 02/25/20 24 Active lithium 600 MG capsule 05/24/20 23 Active mirabegron ER (Myrbetriq) 25 MG 24 hr tabletIndications :Enuresis Take 1 tablet (25 mg) by mouth at bedtime. Do not crush, chew, or split. 90 tablet 3 03/07/20 24 025 Active nicotine polacrilex (Nicorette) 4 MG gumIndications:En gages in vaping Chew 1 each (4 mg) if needed for smoking cessation. Use 4 mg gum every 2-3 hours as needed for vaping cravings. After 2-3 weeks, reduce to using 2 mg gum. 100 each 05/02/20 24 Active nicotine polacrilex (Nicorette) 2 MG gumIndications:En gages in vaping Chew 1 each (2 mg) if needed for smoking cessation. Use 4 mg gum every 2-3 hours as needed for vaping cravings. After 2-3 weeks, reduce to using 2 mg gum every 2-3 hours as needed for vaping cravings 100 each 05/02/20 24 Active Magnesium Glycinate 100 MG capsuleIndication s:Poor sleep Take 1 capsule (100 mg) by mouth at bedtime. 90 capsule 3 05/02/20 24 025 Active ondansetron ODT (Zofran-ODT) 4 MG disintegrating tabletIndications :Nausea Take 1 tablet (4 mg) by mouth every 8 (eight) hours if needed for nausea. 20 tablet 1 09/01/19 25 026 Active pregabalin (Lyrica) 75 MG capsuleIndication s:Fibromyalgia Take 1 capsule (75 mg) by mouth 2 times daily. 60 capsule 1 09/27/19 25 026 Active Tirzepatide-Weigh t Management (Zepbound) 7.5 MG/0.5ML solution auto-injectorIndi cations:Class 3 severe obesity due to excess calories without serious comorbidity with body mass index (BMI) of 45.0 to 49.9 in adult ([facility]) Inject 0.5 mL (7.5 mg) under the skin 1 (one) time per week. 2 mL 2 09/27/19 25 026 Active Tirzepatide-Weigh t Management (Zepbound) 7.5 MG/0.5ML solution auto-injectorIndi cations:Class 3 severe obesity due to excess calories without serious comorbidity with body mass index (BMI) of 45.0 to 49.9 in adult ([facility]) Inject 0.5 mL (7.5 mg) under the skin 1 (one) time per week. 2 mL 2 08/09/19 25 025 Discontinued(R eorder (will not trigger notification to Pharmacy)) pregabalin (Lyrica) 50 MG capsuleIndication s:Fibromyalgia Take 1 capsule (50 mg) by mouth 2 times daily. 60 capsule 1 09/01/19 25 025 Discontinued Active Problems Problem Noted Date Diagnosed Date Fibromyalgia 08/31/2024 Class 3 severe obesity due t o excess calories without serious comorbidity with body mass index (BMI) of 45.0 to 49.9 in adult 08/09/2024 Engages in vaping 05/02/2024 Subclinical hypothyroidism 01/04/2024 Menorrhagia with irregular cycle 12/02/2023 Enuresis 12/02/2023 Mass of lower inner quadrant of right breast 12/2023 Poor sleep 12/02/2023 Anemia 12/02/2023 Lumbar radiculopathy 12/02/2023 Depression 10/16/2023 Resolved Problems Problem Noted Date Diagnosed Date Resolved Date Chlamydia 01/04/2024 02/07/2024 Subclinical hyperthyroidism 12/02/2023 01/04/2024 Encounters Date Type Department Care Team Description 09/27/2024 Telephone Family Medicine [address] [place] [phone] Susy Hernandez NP Appointment ([facility] to schedule an appt in 1 month with PCP onsite) 09/26/2024 7:20 PM EDT Telemedicine Family Medicine [address] [place] [phone] Susy Hernandez NP Class 3 severe obesity due to excess calories without serious comorbidity with body mass index (BMI) of 45.0 to 49.9 in adult ([facility]) (Primary Dx); Fibromyalgia 09/03/2024 Telephone Family Medicine [address] [place] [phone] Susy Hernandez NP Appointment Request 08/31/2024 1:40 PM EST Telemedicine Family Medicine [address] [place] [phone] Susy Hernandez NP Class 3 severe obesity due to excess calories without serious comorbidity with body mass index (BMI) of 45.0 to 49.9 in adult (CMS/HCC) (Primary Dx); Nausea; Dietary counseling; Exercise counseling; Fibromyalgia 08/08/2024 Telephone Family Medicine [address] [place] [address] Susy Hernandez NP Prior Authorization (PA-ZEPBOUND 5MG); Med Refill from Last 3 Months Immunizations Name Administration Dates Next Due HPV 9-Valent 01/03/2024,12/02/2023 Hep B, adult 02/07/2024 HepB-CpG 01/07/2024 Influenza, seasonal, injectable, preservative fr ee 05/21/2024 Meningococcal Polysaccharide A,C,Y,W-135 TT Conj ugate 01/03/2024 Moderna Covid-19 Vaccine 12+ 05/21/2024 Tdap 12/02/2023 Varicella 02/07/2024,01/07/2024 Family History Medical History Relation Name Comments Alcohol abuse Father Liver disease Father Breast cancer Maternal Grandmother Breast cancer Mother's Sister Relation Name Status Comments Father Maternal Grandmother Mother's Sister Social History Tobacco Use Types Packs/Day Years Used Date Smoking Tobacco: Never Smokeless Tobacco: Never Tobacco Cessation:Counseling Given: Not Answered Alcohol Use Standard Drinks/Week Comments Never 0 [...] Orientation Lesbian 07/18/2024 7: 45 PM EST Last Filed Vital Signs Vital Sign Reading Time Taken Comments Blood Pressure 108/68 05/21/2024 9:39 AM EST Pulse 85 05/21/2024 9:04 AM EST Temperature 36.8 ??C (98.2 ??F) 05/21/2024 9:04 AM ES T Respiratory Rate - - Oxygen Saturation 96% 05/21/2024 9:04 AM EST Inhaled Oxygen Concentration - - Weight 128 kg (282 lb) 05/21/2024 9:04 AM EST Height 165.1 cm (5' 5 ) 05/21/2024 9:04 AM EST Body Mass Index 46.93 05/21/2024 9:04 AM EST Plan of Treatment Health Maintenance Due Date Last Done Comments Family Planning (PISQ) 2013 HPV Vaccines (3 - 3-dose series) 06/02/2024 01/03/2024, 12/02/2023 Hepatitis B Vaccines (3 of 3 - 19+ 3-dose series) 07/09/2024 02/07/2024, 01/07/2024 Alcohol/Substance Use Screening 10/30/2024 10/31/2023 Depression Screening 10/30/2024 10/31/2023, 10/31/2023 SDOH Screening 10/30/2024 10/31/2023 Tobacco Screening 05/21/2025 05/21/2024 Pap Smear 01/02/2027 01/03/2024 Lipid Panel 09/25/2028 09/26/2023 DTaP/Tdap/Td Vaccines (2 - T d or Tdap) 12/01/2033 12/02/2023 Zoster Vaccines (1 of 2) 2048 RSV Patients and Patients Aged 60 years or older (1 - 1-dose 75+ series) 2073 HIV Screening Completed 01/03/2024 Hepatitis C Screening Completed 01/03/2024 Meningococcal Vaccine Aged Out 01/03/2024 No grecia laine eligible based on patient's age to complete this topic COVID-19 Vaccine Completed 05/21/2024, 10/20/2023 Influenza Vaccine Completed 05/21/2024 HIB Vaccines Aged Out No longer eligi ble based on patient's age to complete this topic Hepatitis A Vaccines Aged Out No long er eligible based on patient's age to complete this topic IPV Vaccines Aged Out No longer eligi ble based on patient's age to complete this topic Pneumococcal Vaccine: Pediatrics (0 to 5 Years) and At-Risk Patients (6 to 49) Years) Aged Out No longer eligible b ased on patient's age to complete this topic RSV under 20 months Aged Out No longe r eligible based on patient's age to complete this topic Rotavirus Vaccines Aged Out No longer eligible based on patient's age to complete this topic Procedures Procedure Name Priority Date/Time Associated Diagnosis Comments HEPATITIS C AB W/REFL TO HCV RNA, QN, PCR Routine 01/03/2024 9:37 AM EDT Screen for sexually transmitted diseases HIV 1/2 ANTIGEN/ANTIBODY, FOURTH GENERATION W/RFL Routine 01/03/2024 9:37 AM EDT Screen for sexually transmitted diseases IMAGE-GUIDED PAP W/AGE BASED SCR,W/CT/NG Routine 01/03/2024 12:00 AM EDT Screening for cervical cancer from Last 3 Months or Most Recently Relevant to Health Maintenance Results * Hepatitis C Antibody with Reflex to HCV, RNA, Quantitative, Real-Time PCR (01/03/2024 9:37 AM EDT) Hepatitis C Antibody NON-REACT CAS NON-REACT CAS [facility] Comment: HCV antibody was non-reactive. There is no laboratory evidence of HCV infection. In most cases, no further action is required. However, if recent HCV exposure is suspected, a test for HCV RNA (test code 73148) is suggested. For additional information please refer to http://Podcast Ready.[employer]/faq/WED53a3 (This link is being provided for informational/ educational purposes only.) Blood Venous blood specimen / Unknown 01/03/2024 9:37 AM EDT 01/03/2024 9:38 AM EDT Susy David LAB BLOOD ORDERABLES Final Resul t Performing Organization Address [facility] de Phone Number [employer] [address] [place] [address], [place] [address] [facility] [place] [facility] [address] [place] [phone] * HIV-1/2 Antigen and Antibodies, Fourth Generation, with Reflexes (01/03/2024 9:37 AM EDT) [facility] HIV Antigen/Antibody, 4th Generation NON-REAC TIVE NON-REAC TIVE [facility] [place] [facility] Comment: HIV-1 antigen and HIV-1/HIV-2 antibodies were not detected. There is no laboratory evidence of HIV infection. PLEASE NOTE: This information has been disclosed to you from records whose confidentiality may be protected by state law. ??If your state requires such protection, then the state law prohibits you from making any further disclosure of the information without the specific written consent of the person to whom it pertains, or as otherwise permitted by law. A general authorization for the release of medical or other information is NOT sufficient for this purpose. ?? For additional information please refer to http://Podcast Ready.[employer]/faq/IIG195 (This link is being provided for informational/ educational purposes only.) The performance of this assay has not been clinically validated in patients less than 2 years old. Blood Venous blood specimen / Unknown 01/03/2024 9:37 AM EDT 01/03/2024 9:38 AM EDT Susy David DIETETIC INTERN LAB BLOOD ORDERABLES Final Resul t Performing Organization Address City/[facility]/ZIP Co de Phone Number [facility] [employer] [facility] [address] [facility], [facility], [place] [address] [facility] [address] [place] [address] * (ABNORMAL) Image-Guided Pap with Age-Based Screening with CT/NG (01/03/2024 12:00 AM EDT) Comment [facility] Comment: This order for age-based cervical cancer and STI screening follows ACOG guidelines(PB 168, 140, EVR347). See individual assays for performing site location. Clinical Information: [facility] Comment: Routine exam 1ST LMP: [facility] Comment:NONE GIVEN Prev. PAP: [facility] Comment:NONE GIVEN Prev. BX: [facility] Comment:NONE GIVEN SOURCE: [facility] Comment:Cervix, Endocervix Statement Of Adequacy: [facility] Comment: Satisfactory for evaluation. Endocervical/transformation zone component present. Interpretation/Res ult: [facility] Comment: Cytology Results: Negative for intraepithelial lesion or malignancy. COMMENT: [facility] Comment: This Pap test has been evaluated with computer assisted technology. Make Up Operator Helper: BFKW Comment: YP, CT(ASCP) CT screening location: [address] ??[id number] (Always Message) [facility] Comment: EXPLANATORY NOTE: The Pap is a screening test for cervical cancer. It is not a diagnostic test and is subject to false negative and false positive results. It is most reliable when a satisfactory sample, regularly obtained, is submitted with relevant clinical findings and history, and when the Pap result is evaluated along with historic and current clinical information. Chlamydia trachomatis RNA, TMA, Urogenital DETECTED(A) NOT DETECTED [facility] Comment: If results do not correlate with clinical findings, testing using an alternate molecular target which amplifies different genetic sequences can be performed on the same sample for result confirmation within 7 days of sample receipt or per performing laboratory specimen retention policy. Alternate target testing is available; [address] (C. trachomatis) [place] [address] (N. gonorrhoeae). Neisseria gonorrhoeae RNA, TMA, Urogenital NOT DETECTED NOT DETECTED [facility] [place] [facility] (Always Message) [facility] [place] [facility] Comment: The analytical performance characteristics of this assay, when used to test SurePath(TM) specimens have been determined by [facility]. The modifications have not been cleared or approved by the FDA. This assay has been validated pursuant to the CLIA regulations and is used for clinical purposes. For additional information, please refer to https://education.[employer]/faq/HXQ528 (This link is being provided for information/ educational purposes only.) Pap Vial 01/03/2024 01/04/2024 12: 50 AM EDT Susy Hernandez NP LAB BLOOD ORDERABLES Final Resul t [facility] [address], [place] [address] [facility] [place] [facility] [address] [place] [address] from Last 3 Months or Most Recently Relevant to Health Maintenance Insurance [facility] [employer] Member Subscriber Plan / Payer (Ef fective 2023-Present) Name:Ashley Caballero Relation to Subscriber:Self Name:Ashley Caballero Payer ID:Not on file Group ID:[facility] Type:Not on file Address: [facility] [address] [place] [address] Care Teams Rn Cvor Relationship Specialty Start Date End Date Susy Hernandez NP [address] [place] [address] PCP - General Family Medicine 10/21/23
[2024-10-04 19:07] VITALS: BP 119/75; PULSE 85; RESP 16; TEMP -13.3; TEMP 8.1; O2SAT 99
--- NOTE | 2024-10-04 20:14 | ED.NEUROSD ---
HPI - Neuro Symptoms/Deficit General Chief Complaint: Neuro Symptoms/Deficit Stated Complaint: multiple symptoms Time Seen by Provider: 10/04/24 18:03 History of Present Illness HPI Narrative: patient is a 24-year-old female was placed on Trileptal for 2 months secondary to bipolar symptoms. Patient has stopped taking her Trileptal 2 weeks ago. Notice increasing tremors feel somewhat weak nausea at times. Patient from home. No new focal weakness patient has right upper extremity weakness from . No chest pain or diaphoresis no abdominal pain no recreational drug use no suicidal homicidal ideation patient from home. Related Data Allergies Allergy/AdvReac Type Severity Reaction Status Date / Time No Known Allergies Allergy Verified 10/04/24 15:33 Review of Systems Review of Systems: No fever no chills no chest pain or shortness of breath Yes all other systems are reviewed and are negative [facility] Past Medical History Attestation statement: The following information was validated with the patient. Social History Social History Smoked in Last 30 Days: No Use of substances other than those prescribed or required for medical reasons: No Advance Directives: No Advance Directives Information Provided: No Patient : No Physical Exam Vital Signs: Vital Signs: Last Vital Signs Temp 8.1 F L 10/04/24 19:07 Pulse 85 10/04/24 19:07 Resp 16 10/04/24 19:07 BP 119/75 10/04/24 19:07 Pulse Ox 99 10/04/24 19:07 O2 Del Method Room Air 10/04/24 19:07 BMI result Body Mass Index 44.0 Appearance: Alert. Oriented X3. No acute distress. Eyes: Pupils equal, round and reactive to light. ENT: Pharynx normal. Neck: Normal inspection. Neck supple. No lymph nodes noted. No crepitus CVS: Normal heart rate and rhythm. Pulses normal. Normal S1 and S2 Respiratory: No respiratory distress. Breath sounds normal. No Wheezing. No rales Abdomen: Soft and nontender. No rigidity. No distention. good BS x4 Skin: Skin warm and dry. Normal skin color. Normal skin turgor. Extremities: No lower extremity edema. positive weakness to the right upper extremity can not fully extend her arm. Can not abduct her arm fully. There is good sensation [id number] in the left hand grossly intact [id number] on the right somewhat limited due to the limited range of motion on the right side. Grossly movement of the hands were intact. There is no gross deformities noted. Neuro: Oriented X 3. No motor deficit. No sensory deficit. Moving all extermities. No slurred speech Medical Decision Making Medical Decision Making [facility] Narrative: Patient well-appearing no acute distress hemoglobin is 10.5 no gross anemia. Patient's white count is normal. Electrolytes show normal kidney functions. Patient's LFTs are normal. Patient's urine positive for blood. On further questioning patient is currently having her menstruation. Her test was negative. Patient's tox screen was negative. She is well-appearing. Will have patient follow-up with her psychiatrist on an outpatient basis. Differential Diagnosis Differential Diagnoses: The differential diagnosis associated with the presentation includes Electrolyte disturbance, urinary tract infection, polysubstance issues, medication issue Admission/Observation Consideration of admission/observation: Escalation of care including admission/observation considered no need to admit at this time. Lab Data [facility] Lab Attestation statement: I reviewed the patient's lab results. 10/04/24 15:43 10/04/24 15:43 Labs: Lab Results 10/04/24 Range/Units 15:43 WBC 8.9 (4.8-10.8) X10*3/uL RBC 4.06 L (4.20-5.50) X10*6/uL Hgb 10.5 L (12.0-16.0) g/dl Hct 32.0 L (37.0-47.0) % MCV 78.8 L (80.0-98.0) fL MCH 25.9 L (27.0-33.0) pg MCHC 32.8 (31.0-35.0) g/dl RDW 13.9 (11.0-16.0) % Plt Count 235 (160-400) X10*3/uL MPV 10.9 (9.4-12.3) fL Immature Gran % (Auto) 0.6 H (0.0-0.4) % Neut % (Auto) 70.3 (45-73) % Lymph % (Auto) 23.1 (20-40) % [place] % (Auto) 4.6 (2-11) % Eos % (Auto) 1.2 (0-4) % Baso % (Auto) 0.2 (0-2) % Lymph # (Auto) 2.1 (1.2-4.9) X10*3/uL [place] # (Auto) 0.4 (0.1-1.2) X10*3/uL Eos # (Auto) 0.1 (0.0-0.4) X10*3/uL Baso # (Auto) 0.0 (0.0-0.2) X10*3/uL Abs Immat Gran (auto) 0.05 H (0.00-0.03) X10*3/uL Absolute Neuts (auto) 6.3 (2.0-8.3) x10*3/uL Absolute Nucleated RBC 0.000 (0.0-0.012) X10*3/uL Nucleated RBC % (auto) 0.0 (0.0-0.2) /100WBC Sodium 139 (135-145) mmol/L Potassium 4.1 (3.3-5.1) mmol/L Chloride 108 (96-108) mmol/L Carbon Dioxide 26 (22-29) mmol/L Anion Gap 9 L (12-20) BUN 10 (9-16) mg/dL Creatinine 0.72 (0.5-1.4) mg/dL Estim Creat Clear Calc 153.6 Estimated GFR > 60 Random Glucose 86 (60-115) mg/dL Calcium 9.4 (8.4-10.2) mg/dL Magnesium 2.1 (1.6-2.6) mg/dL Total Bilirubin 0.2 (0.0-1.0) mg/dL Direct Bilirubin < 0.2 (0.0-0.5) mg/dL AST 31 (5-31) U/L ALT 38 H (0-31) U/L Alkaline Phosphatase 72 (39-117) U/L Total Protein 7.2 (6.5-8.0) g/dL Albumin 4.0 (3.5-5.0) g/dL Urine Color Yellow Urine Appearance Clear Urine pH 6.5 (5.0-9.0) Ur Specific [place] 1.010 (1.005-1.025) Urine Protein Negative (Neg-Trace) mg/dL Urine Glucose (UA) Negative (Negative) mg/dL Urine Ketones Negative (Negative) mg/dL Urine Blood Large (3+) H (Negative) Urine Nitrite Negative (Negative) Ur Leukocyte Esterase Small (1+) H (Negative) Urine RBC 0-2 (0-2) /HPF Urine WBC 0-5 (0-5) /HPF Ur Squamous Epith Cells 0-2 (0-2) /HPF Urine Bacteria None Seen (None Seen) Hyaline Casts 0-2 (0-2) /LPF Urine Test NEGATIVE (NEGATIVE) Urine Opiates Screen Not Detected (Not Detect) Ur Buprenorphine Scrn Not Detected (Not Detect) ng/mL Ur Oxycodone Screen Not Detected (Not Detect) ng/mL Urine Methadone Screen Not Detected (Not Detect) ng/mL Urine Fentanyl Screen Not Detected (Not Detect) Ur Barbiturates Screen Not Detected (Not Detect) Ur Phencyclidine Scrn Not Detected (Not Detect) Ur Amphetamines Screen Not Detected (Not Detect) U Benzodiazepines Scrn Not Detected (Not Detect) Urine Cocaine Screen Not Detected (Not Detect) U Marijuana (THC) Screen Not Detected (Not Detect) Discharge Plan Discharge Clinical Impression: Weakness Patient Disposition: Home, Self-Care Instructions: Weakness (ED) Referrals: Physician,Unknown J [Physician] - ( Please follow-up with your therapist on an outpatient basis in the next few days.) Print Language: Serbian
[2024-10-04 21:15] VITALS: BP 119/75; PULSE 85; RESP 16; TEMP 36.7; O2SAT 99
[2024-10-08 03:28] LABS: Oxcarbazepine <1.0 mcg/mL (8.0-35.0)
== END 2024-10-04 21:16 | disposition home or self-care (01) ==
PROVIDERS: Physician Assistant; Emergency Provider Emergency Medicine Emergency Medical Services; PCP Nurse Practitioner Family
DX: R53.1 Weakness (principal); R11.0 Nausea; R25.1 Tremor, unspecified; Z79.899 Other long term (current) drug therapy; Z51.81 Encounter for therapeutic drug level monitoring
CPT/HCPCS: 36415; 80048; 80076; 80307; 80339; 81001; 81025; 83735; 85025; 87086; 99284